=== PATIENT | female | born 1975 | race Caucasian/White ===

== ENCOUNTER 2017-08-22 17:10 | Emergency (ER) | payer SELFPAY ==
[~2017-08-22] VITALS: Ht 152.4 cm; Wt 74.0 kg
[~2017-08-22 17:10] MED LIST: AUGM875 PO
[2017-08-22 17:12] VITALS: BP 130/83; PULSE 80; RESP 18; TEMP 97.9; O2SAT 99
[2017-08-22] MEDS ORDERED: IBUP1TAB7 PO (19:12)
== END 2017-08-22 17:40 | disposition left against medical advice (07) ==
LOC: PHEFT 17:10
DX: Z53.21 Procedure and treatment not carried out due to patient leaving prior to being seen by health care provider (principal); M79.602 Pain in left arm; M79.601 Pain in right arm
CPT/HCPCS: 99281

== ENCOUNTER 2017-08-22 18:09 | Emergency (ER) | payer SELFPAY ==
[~2017-08-22] VITALS: Ht 152.4 cm; Wt 74.0 kg
[2017-08-22] MEDS ORDERED: IBUP1TAB7 PO (19:12)
--- NOTE | 2017-08-22 19:12 | PD ---
HPI Chief Complaint: Musculoskeletal Complaint Time Seen by Provider: 18:52 Travel History International Travel<30 days: No Contact w/Intl Traveler<30days: No Traveled to known affect area: No History of Present Illness HPI This is a 42-year-old female here with bilateral arm pain ongoing for several months. Denies injury or trauma. She reports the pain as intermittent. Pain travels from shoulder region all the way down to her fingers. Nothing makes the pain worse or better. Symptom severity is mild. No fever, extremity swelling, altered sensation. PFSH Past Medical History Medical History: Denies Significant Hx Diminished Hearing: No Immunizations Current: Yes Tetanus Vaccination: < 5 Years Influenza Vaccination: No ?: Not Tubal Ligation: Yes Past Surgical History Section: Yes Tonsillectomy: Yes Social History Alcohol Use: No Tobacco Use: No Substance Use: No Allergies-Medications (Allergen,Severity, Reaction): Coded Allergies: No Known Allergies (Verified Adverse Reaction, Unknown, 08/22/17) Reported Meds & Prescriptions Reported Meds & Active Scripts Active No Active Prescriptions or Reported Medications Review of Systems Except as stated in HPI: all other systems reviewed are Neg General / Constitutional: No: Fever Eyes: No: Visual changes HENT: No: Headaches Cardiovascular: No: Chest Pain or Discomfort Respiratory: No: Shortness of Breath Gastrointestinal: No: Abdominal Pain Genitourinary: No: Dysuria Physical Exam Narrative GENERAL: Alert and well-appearing 42-year-old female SKIN: Warm and dry. HEAD: Normocephalic. EYES: No scleral icterus. No injection or drainage. NECK: Supple, trachea midline. No midline spine tenderness CARDIOVASCULAR: Regular rate and rhythm without murmurs, gallops, or rubs. RESPIRATORY: Breath sounds equal bilaterally. No accessory muscle use. GASTROINTESTINAL: Abdomen soft, non-tender, nondistended. MUSCULOSKELETAL: No cyanosis, or edema. Patient reports pain in bilateral upper extremities starting from the shoulder down to the fingers. No bony or soft tissue tenderness. No joint swelling. Full range of motion. No swelling of the extremities. Palpable pulses. Normal coloration. Normal sensation. Brisk cap refill. BACK: Nontender without obvious deformity. No CVA tenderness. Data Data Last Documented VS Vital Signs Date Time Temp Pulse Resp B/P (MAP) Pulse Ox O2 Delivery O2 Flow Rate FiO2 4/19/18 18:14 MDM Medical Decision Making Medical Screen Exam Complete: Yes Emergency Medical Condition: Yes Differential Diagnosis Cervical radiculopathy, arthritis, bursitis Narrative Course 42-year-old female here with bilateral upper extremity pain intermittently for the last 2 months. 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 Her physical exam is benign. She has no bony, soft tissue, joint tenderness. Her extremities are neurovascularly intact. She was instructed to take NSAIDs Diagnosis Primary Impression: Arm pain Qualified Codes: M79.603 - Pain in arm, unspecified Referrals: [facility] Additional Instructions: Medication as directed. Follow-up the [facility]. Scripts Ibuprofen (Ibuprofen) 800 Mg Tab 800 MG PO Q6HR Y for PAIN, #40 TAB 0 Refills Prov: Sophy Crews 08/22/17 Disposition: 01 DISCHARGE HOME Condition: Stable Sophy Crews Aug 22, 2017 19:12
== END 2017-08-22 19:23 | disposition home or self-care (01) ==
LOC: PHEFT 18:09
DX: M79.602 Pain in left arm (principal); M79.601 Pain in right arm
CPT/HCPCS: 99282